=== PATIENT | female | born 1955 | race Caucasian/White ===

== ENCOUNTER 2020-12-19 16:59 | Outpatient (CLI) | payer BC | END 2020-12-19 17:00 | disposition home or self-care (01) | LOC: MADRAD 16:59 | PROVIDERS: ATTEND Registered Nurse | DX: R06.02 Shortness of breath (principal); J32.9 Chronic sinusitis, unspecified | CPT/HCPCS: 70220; 71046 ==

== ENCOUNTER 2021-08-28 11:33 | Outpatient (CLI) | payer BC | END 2021-08-28 11:34 | disposition home or self-care (01) | LOC: MADLAB 11:33 → MADRAD 11:34 | PROVIDERS: ATTEND Specialist | DX: M25.551 Pain in right hip (principal) ==